=== PATIENT | female | born 1960 | race Caucasian/White ===

== ENCOUNTER 2021-07-14 13:52 | Outpatient (REF) | payer OTHER, SELFPAY ==
--- NOTE | ~2021-07-14 | MM_ITS ---
EXAMINATION: MM SCREENING DIGITAL BREAST TOMOSYNTHESIS, BILATERAL CLINICAL INFORMATION: Screening. Asymptomatic. The lifetime risk of breast cancer based on the Tyrer-Cuzick Model is 6%. COMPARISON: Mammography: 10/01/2018, 12/26/2013 TECHNIQUE: Digital breast tomosynthesis is performed in both the craniocaudal and mediolateral oblique views along with computer-aided detection (CAD). Synthesized 2D images are generated from the tomosynthesis. Additional right CC view is provided. FINDINGS: There are scattered areas of fibroglandular density (ACR BI-RADS breast composition Category b). Parenchymal pattern is similar to prior exams. There is stable parenchymal asymmetry posterior upper outer right breast. Neither breast shows interval mass or architectural abnormality or developing density. No abnormal calcifications. The axilla and skin contours are unremarkable. MM/MM tomosynthesis screening BI IMPRESSION: No mammographic evidence of malignancy. ASSESSMENT: BI-RADS 2: Benign RECOMMENDATION: Routine annual mammography screening. This patient's information was entered into a reminder system with a target due date for their next mammogram.
== END 2021-07-14 13:53 | disposition home or self-care (01) ==
LOC: HO.MAMMO 13:52
PROVIDERS: Visit Provider Internal Medicine
DX: Z12.31 Encounter for screening mammogram for malignant neoplasm of breast (principal)
CPT/HCPCS: 77063; 77067

== ENCOUNTER 2023-12-31 09:16 | Outpatient (REF) | payer OTHER, SELFPAY | END 2023-12-31 09:17 | disposition home or self-care (01) | LOC: HO.MAMMO 09:16 | PROVIDERS: PCP Internal Medicine; Visit Provider Internal Medicine | DX: Z12.31 Encounter for screening mammogram for malignant neoplasm of breast (principal) | CPT/HCPCS: 77063; 77067 ==

== ENCOUNTER → 2023-12-31 09:30 | Outpatient (BNV) | payer OTHER, SELFPAY | PROVIDERS: PCP Internal Medicine; Visit Provider Radiology Diagnostic Radiology | DX: Z12.31 Encounter for screening mammogram for malignant neoplasm of breast (principal) | CPT/HCPCS: 77063; 77067 ==

== ENCOUNTER 2025-05-08 08:40 | Outpatient (REF) | payer MEDICARE, SELFPAY ==
--- OUTSIDE RECORDS SUMMARY | 2025-05-08 08:55 | XMS_ITS | Clinical Summary ---
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 MRI [address] [place] [address] Discharge Disposition: Home or Self Care from Last 3 Months Social History Tobacco Use Types Packs/Day Years Used Date Smoking Tobacco: Never Assessed Comments Unknown Sex and Gender Information Value Date Recorded Sex Assigned at Not on file Legal Sex Female 9:38 AM EST Gender Identity Not on file Sexual Orientation Not on file Plan of Treatment Health Maintenance Due Date Last Done Comments Breast Cancer Screening 1960 DTaP,Tdap,and Td Vaccines (1 - Tdap) 1979 Cervical Cancer Screening: Pap Smear 1981 Pneumococcal Vaccine: 50+ Years (1 of 1 - PCV) 2010 COVID-19 Vaccine ( season) 2024 03/26/2023, 07/19/2021, 12/31/2020, Additional history exists Depression Screening 09/24/2024 Colorectal Cancer Screening: Colonoscopy 01/22/2025 Hepatitis C Screening 01/22/2025 Osteoporosis Screening (Bone Density Screening) 01/22/2025 Social Influencers of Health Screening 01/22/2025 Zoster Vaccines (2 of 2) 03/20/2025 01/23/2025 Falls Risk Assessment 2025 Influenza Vaccine (#1) 2025 07/28/2021 RSV Immunization Adult Patients (1 - 1-dose 75+ series) 2035 HIB Vaccines Aged Out No longer eligi ble based on patient's age to complete this topic HPV Vaccines Aged Out No longer eligi ble based on patient's age to complete this topic Hepatitis A Vaccines Aged Out No long er eligible based on patient's age to complete this topic Hepatitis B Vaccines Aged Out No long er eligible based on patient's age to complete this topic IPV Vaccines Aged Out No longer eligi ble based on patient's age to complete this topic MMR Vaccines Aged Out No longer eligi ble based on patient's age to complete this topic Meningococcal ACWY Vaccine Aged Out N o longer eligible based on patient's age to complete this topic Meningococcal B Vaccine Aged Out No l onger eligible based on patient's age to complete this topic RSV Immunization Patients Under 20 months Aged Out No longer eligible based on patient's age to complete this topic Varicella Vaccines Aged Out No longer eligible based on patient's age to complete this topic Procedures Procedure Name Priority Date/Time Associated Diagnosis Comments MR CERVICAL SPINE WO CONTRAST Routine 02/05/2025 1:08 PM EDT Radiculopathy from Last 3 Months Results * MR Cervical Spine wo Contrast (02/05/2025 1:08 PM EDT) Anatomical Region Laterality Modality C-spine, Spine Magnetic Resonan ce 02/05/2025 3:33 PM EDT Impressions 02/06/2025 2:39 PM EDT Multilevel degenerative changes most pronounced at C5-6 and C6-7 -------- FINAL REPORT -------- Dictated By: CLARISA WOMACK Dictated Date: 02/05/2025 15:33 ET Assigned Physician: CLARISA WOMACK Reviewed and Electronically Signed By: CLARISA WOMACK Signed Date: 02/06/2025 14:39 ET Workstation ID: [id number] Transcribed By: Self Edit Transcribed Date: 02/05/2025 15:48 ET Narrative 02/06/2025 2:39 PM EDT PROCEDURE: Cervical spine MRI INDICATION: Pain, radiculopathy TECHNIQUE: Multiplanar, multisequence MRI of the Cervical spine Without contrast. COMPARISON: No priors available. FINDINGS: Cervical lordosis is preserved. No fracture or suspicious marrow replacing lesion. Mild multilevel degenerative loss of normal disc height and signal with associated degenerative endplate spurring, most pronounced at C5-6 and C6-7. Degenerative facet arthritis seen throughout the cervical spine, most pronounced at C3-4 and C7-T1. Cervical cord is normal in signal and morphology. No epidural collection or mass is seen within the spinal canal. Paraspinal muscles are within normal limits. Foramen magnum is normal. Findings by level: C2-C3: No focal disc protrusion, foraminal stenosis, or spinal canal stenosis. C3-C4: No focal disc protrusion, foraminal stenosis, or spinal canal stenosis. C4-C5: Right uncovertebral spur and facet arthropathy results in mild right and no left foraminal stenosis. No spinal canal stenosis. C5-C6: Posterior disc osteophyte complex and right greater than left uncovertebral spurring resulting in severe right and moderate left foraminal stenosis. Mild spinal canal stenosis C6-C7: Posterior disc osteophyte complex and bilateral uncovertebral spurring resulting in severe foraminal stenosis bilaterally. Mild spinal canal stenosis. C7-T1: Bilateral facet arthropathy and uncovertebral spurring resulting in mild foraminal stenosis bilaterally. No spinal canal stenosis Procedure Note Clarisa Womack MD - 02/06/2025 PROCEDURE: Cervical spine MRI INDICATION: Pain, radiculopathy TECHNIQUE: Multiplanar, multisequence MRI of the Cervical spine Withoutcontrast. COMPARISON: No priors available. FINDINGS: Cervical lordosis is preserved. No fracture or suspicious marrow replacing lesion. Mild multilevel degenerative loss of normal disc height and signal withassociated degenerative endplate spurring, most pronounced at C5-6 andC6-7. Degenerative facet arthritis seen throughout the cervical spine, mostpronounced at C3-4 and C7-T1. Cervical cord is normal in signal and morphology. No epidural collectionor mass is seen within the spinal canal. Paraspinal muscles are within normal limits. Foramen magnum is normal. Findings by level: C2-C3: No focal disc protrusion, foraminal stenosis, or spinal canalstenosis. C3-C4: No focal disc protrusion, foraminal stenosis, or spinal canalstenosis. C4-C5: Right uncovertebral spur and facet arthropathy results in mildright and no left foraminal stenosis. No spinal canal stenosis. C5-C6: Posterior disc osteophyte complex and right greater than leftuncovertebral spurring resulting in severe right and moderate leftforaminal stenosis. Mild spinal canal stenosis C6-C7: Posterior disc osteophyte complex and bilateral uncovertebralspurring resulting in severe foraminal stenosis bilaterally. Mild spinalcanal stenosis. C7-T1: Bilateral facet arthropathy and uncovertebral spurring resulting inmild foraminal stenosis bilaterally. No spinal canal stenosis IMPRESSION: Multilevel degenerative changes most pronounced at C5-6 and C6-7 -------- FINAL REPORT -------- Dictated By: LCARISA WOMACK Dictated Date: 02/05/2025 15:33 ET Assigned Physician: CLARISA WOMACK Reviewed and Electronically Signed By: CLARISA WOMACK Signed Date: 02/06/2025 14:39 ET Workstation ID: [id number] Transcribed By: Self Edit Transcribed Date: 02/05/2025 15:48 ET Maximus Lopez MD IMG MRI PROCEDURES Final Resul t from Last 3 Months Insurance [facility]
== END 2025-05-08 08:41 | disposition home or self-care (01) ==
LOC: HO.MAMMO 08:40
PROVIDERS: PCP Internal Medicine; Visit Provider Internal Medicine
DX: Z12.31 Encounter for screening mammogram for malignant neoplasm of breast (principal)
CPT/HCPCS: 77063; 77067

== ENCOUNTER → 2025-05-08 08:45 | Outpatient (BNV) | payer MEDICARE, SELFPAY | PROVIDERS: PCP Internal Medicine; Visit Provider Internal Medicine | DX: Z12.31 Encounter for screening mammogram for malignant neoplasm of breast (principal) | CPT/HCPCS: 77063; 77067 ==